=== PATIENT | male | born 1960 | race Caucasian/White ===

== ENCOUNTER 2021-02-10 12:36 | Emergency (ER) | payer OTHER ==
[~2021-02-10] VITALS: Ht 162.6 cm; Wt 74.8 kg
[2021-02-10 13:13] LABS: ABSOLUTE BASOPHILS 0.1 thou/uL (0.0-0.2); ABSOLUTE LYMPHOCYTES 1.7 thou/uL (0.8-5.3); ABSOLUTE MONOCYTES 0.5 thou/uL (0.0-1.2); ABSOLUTE NEUTROPHILS 6.6 thou/uL (1.6-8.1); BASOPHILS 0.8 %; EOSINOPHILS 0.5 %; HEMATOCRIT 46.3 % (42.0-52.0); HEMOGLOBIN 15.8 gm/dL (14.0-18.0); MCH 30.1 pg (26.0-34.0); MCHC 34.2 g/dL (28.0-37.0); MONOCYTES 5.6 %; MPV 7.5 fl. (7.2-11.1); NUCLEATED RBCS 0 /100WBC; PLATELET COUNT* 198 thou/uL (150-400); POLYS 74.1 %; RBC 5.27 mil/uL (4.50-6.00); RDW-CV 13.5 % (10.5-14.5); WBC 8.9 thou/uL (4.0-11.0)
[2021-02-10 13:24] LABS: CREATININE 1.3 mg/dL (0.6-1.3); POTASSIUM 4.3 mmol/L (3.5-5.1)
[2021-02-10 13:25] LABS: APTT 25.7 Seconds (25.0-31.3); PROTIME 10.3 Seconds (9.20-11.50)
[2021-02-10 13:35] LABS: ALBUMIN 4.5 g/dL (3.4-5.0); TOTAL BILIRUBIN 0.8 mg/dL (<0.1-1.0); TOTAL PROTEIN 7.9 g/dL (6.4-8.2)
[2021-02-10 13:53] VITALS: BP 142/76
--- NOTE | 2021-02-10 14:33 | EKG ---
[place] [address] ELECTROCARDIOGRAM REPORT Name: HALIE DENNIS Room: [facility]#: [id number] Admission: 02/10/21 Attend Phys: Discharge: 02/10/21 Date of : 60 Date of Service: 02/10/21 1242 Report #: [id number] THIS REPORT FOR: //name// [facility] ED Test Date: 2021-02-10 Test Time: 12:42:52 Pat Name: HALIE DENNIS Department: Room: Gender: Slp Teacher: : 1960 Requested By: Ronnie Nogueira Order Number: [id number] MD: Cole Tellez Measurements Intervals [place] Rate: 95 P: 58 KS: 135 QRS: 77 QRSD: 106 T: 29 QT: 369 QTc: 464 Interpretive Statements Sinus rhythm Probable left ventricular hypertrophy Anterior ST elevation, probably due to LVH Artifact in lead(s) I,II,III,aVR,aVL,aVF,V4,V5 No previous ECG available for comparison Electronically Signed On 02-10-2021 14:33:21 CDT by Cole Tellez [email or web address] <ELECTRONICALLY SIGNED> By: Cole Tellez MD, [facility] 02/10/21 1433 1242 1242 Cole Tellez MD, [facility] /EPI
== END 2021-02-10 13:53 | disposition home or self-care (01) ==
LOC: M.ERS 12:36
PROVIDERS: Family Medicine
DX: F41.0 Panic disorder [episodic paroxysmal anxiety] (principal); Z20.822 Contact with and (suspected) exposure to COVID-19; F17.210 Nicotine dependence, cigarettes, uncomplicated